=== PATIENT | male | born 1985 | race Caucasian/White ===

== ENCOUNTER → 2017-12-25 | Emergency (ER) | payer OTHER ==
[~2017-12-25] VITALS: Ht 162.6 cm; Wt 86.2 kg
[~2017-12-25] MED LIST: INTESTINEX680 M1 PO; LEVSIN/SL0.125 MG SL; MIRALAX510 GM PO
== END | disposition home or self-care (01) ==
LOC: ER 20:19
DX: K59.09 Other constipation (principal); R10.31 Right lower quadrant pain

== ENCOUNTER → 2019-06-19 | Emergency (ER) | payer OTHER ==
[~2019-06-19] VITALS: Ht 162.6 cm; Wt 90.7 kg
== END | disposition home or self-care (01) ==
LOC: ER 20:30
DX: S61.220A Laceration with foreign body of right index finger without damage to nail, initial encounter (principal); S61.226A Laceration with foreign body of right little finger without damage to nail, initial encounter; S61.222A Laceration with foreign body of right middle finger without damage to nail, initial encounter; S61.224A Laceration with foreign body of right ring finger without damage to nail, initial encounter; W45.8XXA Other foreign body or object entering through skin, initial encounter; Y93.89 Activity, other specified; Y92.89 Other specified places as the place of occurrence of the external cause; Y99.8 Other external cause status